=== PATIENT | female | born 1960 | race Caucasian/White ===

== ENCOUNTER 2022-07-15 09:58 | Day surgery (SDC) | payer OTHER | END 2022-07-15 10:30 | disposition home or self-care (01) | LOC: SDC-PAIN 09:58 | PROVIDERS: ATTEND Psychiatry & Neurology Pain Medicine | DX: Z53.8 Procedure and treatment not carried out for other reasons (principal); N39.0 Urinary tract infection, site not specified ==

== ENCOUNTER 2022-08-05 14:28 | Day surgery (SDC) | payer OTHER ==
[2022-08-05] MEDS ORDERED: Sodium Chloride 0.9(Preservative Free) 10 ML IJ ONE (14:29)
[2022-08-05] MEDS ORDERED: Depo-Medrol 40 MG/ML IM ONE (14:29)
[2022-08-05] MEDS ORDERED: Xylocaine 1% Vial 30 ML PF IJ ONE (14:29)
[2022-08-05] MEDS ORDERED: DIPRIVAN 200 MG/20 ML IV ONE (17:28)
[2022-08-05] MEDS ORDERED: Lactated Ringers 1,000 ML IV ONE (17:56)
--- NOTE | 2022-08-05 19:00 | XRAY ---
Indication: Lumbar MAK. Intraoperative fluoroscopy provided for 14 seconds. 2 digital spot images submitted for interpretation demonstrates posterior needle tip projecting posterior to L4-L5 interspace. Small amount of contrast injected for needle tip placement. Correlate with intraoperative findings/report.
--- NOTE | 2022-08-06 08:55 | XRAY ---
14 seconds fluoroscopy time in surgery for lumbar MAK.
== END 2022-08-05 18:05 | disposition home or self-care (01) ==
LOC: SDC-PAIN 14:28
PROVIDERS: ATTEND Psychiatry & Neurology Pain Medicine
DX: M54.16 Radiculopathy, lumbar region (principal); Z79.899 Other long term (current) drug therapy
CPT/HCPCS: 62323; 72100; 77003; J1030; J2001; J2704; Q9966

== ENCOUNTER 2023-12-15 06:57 | Day surgery (SDC) | payer MEDICARE ==
[2023-12-15] MEDS ORDERED: XYLOCAINE-MPF 1% 5ML SDV IJ ONE (06:58)
[2023-12-15] MEDS ORDERED: Decadron 4 MG INJ IV ONE (06:58)
[2023-12-15] MEDS ORDERED: Depo-Medrol 40 MG/ML IM ONE (06:58)
[2023-12-15] MEDS ORDERED: Sodium Chloride 0.9(Preservative Free) 10 ML IJ ONE (06:58)
[2023-12-15] MEDS ORDERED: DIPRIVAN 200 MG/20 ML IV ONE ×2 (09:27→09:33)
--- NOTE | 2023-12-15 10:47 | XRAY ---
Indication: Right piriformis injection. Intraoperative fluoroscopy provided for 24 seconds. Single digital spot image submitted for interpretation demonstrates posterior needle tip projecting over the expected right piriformis. Small amount of contrast injected for needle tip placement. Correlate with intraoperative findings/report.
--- NOTE | 2023-12-15 10:47 | XRAY ---
Indication: Lumbar MAK. Intraoperative fluoroscopy provided for 25 seconds. 2 digital spot image submitted for interpretation demonstrates posterior needle tip projecting posterior to the last lumbar segment. Small amount of contrast injected for needle tip placement. Correlate with intraoperative findings/report. Incidental right common iliac stent.
--- NOTE | 2023-12-15 10:53 | XRAY ---
25 seconds of fluoroscopy was used in surgery for a lumbar MAK.
--- NOTE | 2023-12-15 10:54 | XRAY ---
24 seconds of fluoroscopy was used in surgery for a right piriformis injection.
[2023-12-15] MEDS ORDERED: Lactated Ringers 1,000 ML IV ONE (11:50)
== END 2023-12-15 10:03 | disposition home or self-care (01) ==
LOC: SDC-PAIN 06:57
PROVIDERS: ATTEND Psychiatry & Neurology Pain Medicine
DX: M54.16 Radiculopathy, lumbar region (principal); M79.18 Myalgia, other site
CPT/HCPCS: 20552; 62321; 72100; 72170; 77002; 77003; J1030; J1100; J2704; Q9966